=== PATIENT | female | born 1965 | race Hispanic/Latino ===

== ENCOUNTER 2019-09-26 19:28 | Inpatient (IN) | payer MEDICARE ==
[2019-09-26 20:33] LABS: EOSINOPHILS % (AUTO) 0.8 % (0.0-8.0); HEMATOCRIT 41.7 % (36-48); LYMPHOCYTES % (AUTO) 23.4 % (21.0-51.0); MEAN CORPUSCULAR HEMOGLOBIN 29.2 pg (27.0-33.0); MEAN CORPUSCULAR HGB CONC 33.6 g/dL (32.0-36.0); MEAN CORPUSCULAR VOLUME 87.1 fL (79-99); MONOCYTES % (AUTO) 7.2 % (3.0-13.0); NEUTROPHILS % (AUTO) 68.2 % (40.0-77.0); PLATELET COUNT (AUTO) 255 K/uL (130-400); RED BLOOD CELL COUNT(AUTO) 4.79 MIL/uL (4.00-5.50); RED CELL DISTRIBUTION WIDTH 12.4 % (11.0-15.5)
[2019-09-26 20:43] LABS: CARBON DIOXIDE 29 mmol/L (21-32); CHLORIDE 100 mmol/L (101-111); CREATININE 0.7 mg/dL (0.5-1.5); GLOMERULAR FILTR. RATE CALC 93 mL/min (>60); GLUCOSE,RANDOM 151 mg/dL (70-105); POTASSIUM 3.4 mmol/L (3.5-5.1); SODIUM SERUM 139 mmol/L (136-145); UREA NITROGEN, BLOOD 10 mg/dL (7-18)
[2019-09-26 20:47] LABS: INR 0.9 (0.85-1.15); PARTIAL THROMBOPLASTIN TIME 26.6 SEC (26.3-35.5); PROTHROMBIN TIME 9.8 SEC (9.6-11.6)
[2019-09-26 20:54] LABS: ALANINE AMINOTRANSFERASE 47 U/L (12-78); ASPARTATE AMINOTRANSFERASE 35 U/L (10-37); BILIRUBIN,TOTAL 0.8 mg/dL (0.2-1.0); CREATINE KINASE, TOTAL 70 U/L (21-232); MYOGLOBIN 34 ng/mL (10-92); TOTAL PROTEIN, SERUM 8.1 g/dL (6.0-8.3); TROPONIN I < 0.04 ng/mL (0.00-0.06)
[2019-09-26] MEDS ORDERED: CALCIUM CARBON 500MG CHEW TAB ONE (22:45)
[2019-09-26] MEDS ORDERED: ONDANSETRON HCL 4 MG/2 ML VIAL ONE (22:45)
[2019-09-26] MEDS ORDERED: ACETAMINOPHEN EXTRA STRENGTH 500 MG TABLET ONE (22:49)
[2019-09-27] MEDS ORDERED: DOXYCYCLINE 100MG+NS 250ML IV SCH (00:30)
[2019-09-27] MEDS ORDERED: HYDRALAZINE HCL 20 MG/ML VIAL IV PRN (00:30)
[2019-09-27] MEDS ORDERED: ACETAMINOPHEN 325 MG TAB PO PRN ×2 (00:30)
[2019-09-27] MEDS ORDERED: ONDANSETRON HCL 4 MG/2 ML VIAL IV PRN (00:30)
[2019-09-27] MEDS ORDERED: LACTULOSE 20 GM/30 ML UDCUP PO PRN (00:30)
[2019-09-27] MEDS ORDERED: ERGOCALCIFEROL (VITAMIN D2) 50,000 UNIT CAPSULE PO ONE (00:30)
[2019-09-27] MEDS ORDERED: POTASSIUM CHLORIDE 10% ELIXIR 20 MEQ/15 ML UDCUP PO PRN (01:15)
[2019-09-27] MEDS ORDERED: LIDOCAINE HCL-MPF 1% 2ML VIAL IV PRN (01:15)
[2019-09-27] MEDS ORDERED: POTASSIUM CHLORIDE 10MEQ/100ML 100 ML IV PRN (01:15)
[2019-09-27] MEDS ORDERED: POTASSIUM CHLORIDE 20 MEQ ERTAB PO PRN (01:15)
[2019-09-27] MEDS ORDERED: ALBUTEROL INHALER 90MCG/INH IH PRN (01:15)
[2019-09-27] MEDS ORDERED: AZITHROMYCIN 500MG+NS 250ML 250 ML IV ONE (01:23)
[2019-09-27] MEDS ORDERED: CEFTRIAXONE SODIUM 1 GM ONE ×2 (01:24→08:49)
[2019-09-27] MEDS ORDERED: CEFTRIAXONE SODIUM 1 GM IVP SCH (01:30)
[2019-09-27] MEDS ORDERED: IOHEXOL 350 MG/ML 100ML INFUS..BTL IV ONE (03:07)
[2019-09-27] MEDS ORDERED: INSULIN HUMULIN R 100 UNIT/ML 3ML SQ SCH (07:30)
[2019-09-27] MEDS ORDERED: ZINC SULFATE 220 CAPSULE ONE (08:48)
[2019-09-27] MEDS ORDERED: ASCORBIC ACID 500 MG TAB ONE (08:48)
[2019-09-27] MEDS ORDERED: METHYLPREDNISOLONE SOD SUCC 40MG/ML 1ML ONE ×2 (08:48→20:30)
[2019-09-27] MEDS ORDERED: ENOXAPARIN SODIUM 40 MG/0.4 ML SYRINGE SQ ONE (08:48)
[2019-09-27] MEDS ORDERED: DOXYCYCLINE 100MG+NS 250ML 250 ML IV ONE (08:48)
[2019-09-27] MEDS ORDERED: FAMOTIDINE/PF 20 MG/2 ML VIAL IV ONE ×2 (08:49→20:30)
[2019-09-27] MEDS ORDERED: ASCORBIC ACID 500 MG TAB PO SCH (09:00)
[2019-09-27] MEDS ORDERED: ZINC SULFATE 220 CAPSULE PO SCH (09:00)
[2019-09-27] MEDS ORDERED: FAMOTIDINE 20MG TAB 20 MG TAB PO SCH (09:00)
[2019-09-27] MEDS ORDERED: ENOXAPARIN SODIUM 40 MG/0.4 ML SYRINGE SQ SCH (09:00)
[2019-09-27] MEDS ORDERED: METHYLPREDNISOLONE SOD SUCC 40MG/ML 1ML IVP SCH (09:00)
[2019-09-27] MEDS ORDERED: INSULIN HUMULIN R 100 UNIT/ML 3ML ONE (20:31)
[2019-09-28] MEDS ORDERED: DOXYCYCLINE 100MG+NS 250ML 250 ML IV ONE (00:33)
[2019-09-28] MEDS ORDERED: CEFTRIAXONE SODIUM 1 GM ONE ×2 (00:34→08:44)
[2019-09-28] MEDS ORDERED: DOXYCYCLINE HYCLATE 100 MG TABLET PO ONE ×2 (00:59→07:41)
[2019-09-28 05:42] LABS: BASOPHILS % (AUTO) 0.3 % (0.0-5.0); LYMPHOCYTES % (AUTO) 17.1 % (21.0-51.0); MEAN CORPUSCULAR HEMOGLOBIN 28.5 pg (27.0-33.0); MEAN CORPUSCULAR HGB CONC 33.3 g/dL (32.0-36.0); MEAN CORPUSCULAR VOLUME 85.8 fL (79-99); MONOCYTES % (AUTO) 2.8 % (3.0-13.0); NEUTROPHILS % (AUTO) 79.5 % (40.0-77.0); PLATELET COUNT (AUTO) 290 K/uL (130-400); RED BLOOD CELL COUNT(AUTO) 5.01 MIL/uL (4.00-5.50); RED CELL DISTRIBUTION WIDTH 12.3 % (11.0-15.5)
[2019-09-28 06:08] LABS: ALBUMIN 2.8 g/dL (3.5-5.0); BILIRUBIN,TOTAL 0.5 mg/dL (0.2-1.0); CREATININE 0.7 mg/dL (0.5-1.5); POTASSIUM 3.8 mmol/L (3.5-5.1); TOTAL PROTEIN, SERUM 8.2 g/dL (6.0-8.3)
[2019-09-28 06:32] LABS: HEMOGLOBIN A1C 8.2 % (4.0-6.0)
[2019-09-28] MEDS ORDERED: METHYLPREDNISOLONE SOD SUCC 40MG/ML 1ML ONE ×2 (07:41→08:44)
[2019-09-28] MEDS ORDERED: ASCORBIC ACID 500 MG TAB ONE (07:41)
[2019-09-28] MEDS ORDERED: ZINC SULFATE 220 CAPSULE ONE (07:42)
[2019-09-28] MEDS ORDERED: ENOXAPARIN SODIUM 40 MG/0.4 ML SYRINGE SQ ONE (07:42)
[2019-09-28] MEDS ORDERED: FAMOTIDINE/PF 20 MG/2 ML VIAL IV ONE (07:42)
[2019-09-28] MEDS ORDERED: ALBU18HF7 IH (11:59)
[2019-09-28] MEDS ORDERED: PRED20TA3 PO (11:59)
[2019-09-28] MEDS ORDERED: AZIT500T PO (11:59)
--- NOTE | 2019-09-28 12:32 | NUR ---
CHART CHECK COMPLETE. Pt IS A 54 Y.O. FEMALE ADMITTED SECONDARY TO SUSPECTED COVID-19. Pt HAS A PAST MEDICAL HISTORY, DM, R BREAST CANCER, HYPERTENSION, R MASTECTOMY. Pt CURRENTLY ON REGULAR TEXTURE, THIN LIQUIDS. SKILLED SPEECH THERAPY IS NOT WARRANTED AT THIS TIME. Addendum: 09/28/19 at 1236 by LATA DASILVA, [facility] Amended: Links added.
== END 2019-09-28 15:35 | disposition home or self-care (01) | DRG 177 ==
LOC: EDH 19:28 → EDHIP 09-27 00:24
PROVIDERS: ADMIT Hospitalist; ATTEND Hospitalist
DX: U07.1 COVID-19 (principal); J18.9 Pneumonia, unspecified organism; I10 Essential (primary) hypertension; E11.9 Type 2 diabetes mellitus without complications; E87.6 Hypokalemia; Z90.11 Acquired absence of right breast and nipple; Z85.3 Personal history of malignant neoplasm of breast
CPT/HCPCS: 36415; 71045; 71275; 80053; 82550; 82948; 83036; 83605; 83615; 83874; 84145; 84484; 85025; 85378; 85610; 85730; 86140; 86900; 86901; 87040; 87804; 87880; 93005; G0378; J0456; J0696; J1650; J1815; J2405; J2920; J3490; Q9967; U0003

== ENCOUNTER → 2021-08-22 | Outpatient (CLI) | payer OTHER, MEDICARE ==
[~2021-08-22] MED LIST: ALBU18HF7 IH; AZIT500T PO; PRED20TA3 PO
== END | disposition home or self-care (01) ==
LOC: RAH 08:58
PROVIDERS: ATTEND Family Medicine
DX: K81.9 Cholecystitis, unspecified (principal); E80.6 Other disorders of bilirubin metabolism; K76.89 Other specified diseases of liver
CPT/HCPCS: 74181

== ENCOUNTER 2022-12-27 17:25 | Emergency (ER) | payer OTHER, MEDICARE ==
[~2022-12-27] VITALS: Ht 165.1 cm; Wt 90.7 kg
[2022-12-27 18:21] LABS: BASOPHILS # (AUTO) 0.03 K/uL (0.00-0.20); BASOPHILS % (AUTO) 0.3 % (0.0-5.0); EOSINOPHILS # (AUTO) 0.01 K/uL (0.00-0.70); EOSINOPHILS % (AUTO) 0.1 % (0.0-8.0); IMMATURE GRANULOCYTE ABSOLUTE 0.03 K/uL (0-1); LYMPHOCYTES # (AUTO) 1.5 K/uL (1.0-4.8); LYMPHOCYTES % (AUTO) 14.3 % (21.0-51.0); MEAN CORPUSCULAR HEMOGLOBIN 30.4 pg (27.0-33.0); MEAN CORPUSCULAR HGB CONC 34.3 g/dL (32.0-36.0); MEAN CORPUSCULAR VOLUME 88.7 fL (79-99); MONOCYTES # (AUTO) 0.5 K/uL (0.1-1.0); MONOCYTES % (AUTO) 4.4 % (3.0-13.0); NEUTROPHILS # (AUTO) 8.2 K/uL (1.8-7.7); NEUTROPHILS % (AUTO) 80.6 % (40.0-77.0); PLATELET COUNT (AUTO) 212 K/uL (130-400); RED BLOOD CELL COUNT(AUTO) 4.96 MIL/uL (4.00-5.50); RED CELL DISTRIBUTION WIDTH 12.4 % (11.0-15.5); WHITE BLOOD COUNT (AUTO) 10.2 K/uL (4.8-10.8)
[2022-12-27 18:36] LABS: AMPHET/METH SCREEN,URINE NEGATIVE (NEGATIVE); BARBITURATE SCREEN, URINE NEGATIVE (NEGATIVE); BENZODIAZEPINES SCREEN,URINE NEGATIVE (NEGATIVE); CANNABINOID SCREEN,URINE NEGATIVE (NEGATIVE); COCAINE SCREEN,URINE NEGATIVE (NEGATIVE); OPIATE SCREEN,URINE NEGATIVE (NEGATIVE); PHENCYCLIDINE SCREEN,URINE NEGATIVE (NEGATIVE)
[2022-12-27 18:37] LABS: CREATININE 0.8 mg/dL (0.5-1.5)
[2022-12-27 18:41] LABS: ALBUMIN 3.9 g/dL (3.5-5.0); BILIRUBIN,TOTAL 1.1 mg/dL (0.2-1.0); MAGNESIUM 1.9 mg/dL (1.80-2.40); TOTAL PROTEIN, SERUM 8.4 g/dL (6.0-8.3)
[2022-12-27 18:44] LABS: ADD UA MICROSCOPIC YES; APPEARANCE,URINE CLOUDY (CLEAR); BILIRUBIN,URINE NEGATIVE (NEGATIVE); COLOR,URINE YELLOW (YELLOW); GLUCOSE, URINE (UA) >=1000 mg/dL (NEGATIVE); KETONES,URINE NEGATIVE (NEGATIVE); LEUKOCYTE ESTERASE ,URINE NEGATIVE Leu/uL (NEGATIVE); NITRATE,URINE 2+ (NEGATIVE); OCCULT BLOOD,URINE NEGATIVE (NEGATIVE); PROTEIN,URINE 20 mg/dL (NEGATIVE)
[2022-12-27 18:51] LABS: BACTERIA,URINE MANY /HPF (None Seen); MUCUS,URINE FEW LPF (None Seen); SQUAMOUS EPITHELIAL CELL,UR MANY /HPF (0-2)
[2022-12-27 19:27] VITALS: BP 140/68; PULSE 77; RESP 16; O2SAT 99
[2022-12-27] MEDS ORDERED: FAMO-136 PO (20:59)
[2022-12-27] MEDS ORDERED: ACETAMINOPHEN 325 MG TAB PO ONE (21:00)
== END 2022-12-27 21:24 | disposition home or self-care (01) ==
LOC: EDH 17:25
DX: M94.0 Chondrocostal junction syndrome [Tietze] (principal); E11.9 Type 2 diabetes mellitus without complications; K21.9 Gastro-esophageal reflux disease without esophagitis; Z79.899 Other long term (current) drug therapy; Z98.890 Other specified postprocedural states
CPT/HCPCS: 36415; 71045; 80053; 80305; 81001; 83735; 84484; 85025; 87077; 87088; 87186; 93005